=== PATIENT | male | born 1995 | race African-American/Black ===

== ENCOUNTER 2020-04-30 23:29 | Emergency (ER) | payer MEDICAID, OTHER ==
[~2020-04-30] VITALS: Ht 182.9 cm; Wt 69.9 kg
[2020-05-01 00:19] LABS: Basophils # (auto) 0.2 10 ^3/uL (0-0.2); Basophils % (auto) 2.7 % (0.0-2.0); Eosinophils # (auto) 0.1 10 ^3/uL (0-0.8); Eosinophils % (auto) 1.9 % (0.0-7.0); Hematocrit 39.1 % (41.0-53.0); Hemoglobin 13.3 g/dL (13.5-17.5); Lymphocytes # (auto) 1.2 10 ^3/uL (0.4-5.4); Lymphocytes % (auto) 19.8 % (10.0-50.0); Mean Corpuscular Hemoglobin 30.6 pg (28.0-32.0); Mean Corpuscular Volume 90.1 fL (80.0-100.0); Monocytes # (auto) 0.7 10 ^3/uL (0-1.3); Monocytes % (auto) 11.8 % (0.0-12.0); Neutrophils % (auto) 63.8 % (37.0-80.0); Platelet Count (auto) 203 10^3/uL (140-450); Red Blood Cells 4.34 10^6/uL (4.5-5.90); Red Cell Distribution Width 13.7 % (11.8-14.3); White Blood Cell 6.2 10^3/uL (4.4-10.8)
[2020-05-01 00:29] LABS: Albumin 4.3 g/dL (3.4-5.0); Anion Gap 9 (5-15); Blood Urea Nitrogen 11 mg/dL (7-18); Calcium 9.2 mg/dL (8.5-10.1); Carbon Dioxide 27 mmol/L (21-32); Chloride 105 mmol/L (98-107); Glucose 67 mg/dL (74-106); Potassium 3.7 mmol/L (3.5-5.1); Sodium 141 mmol/L (136-145)
[2020-05-01 00:30] LABS: Salicylate < 1.7 mg/dL (2.8-20.0)
[2020-05-01 00:32] LABS: Alanine Aminotransferase 17 U/L (16-61); Aspartate Aminotransferase 18 U/L (15-37); BUN/Creatinine Ratio 11.3; Blood Alcohol < 3.0 mg/dL (0-5); GFR African American 123 mL/min; GFR Non-African American 102 mL/min
[2020-05-01 00:35] LABS: Alkaline Phosphatase 52 U/L (45-117); Bilirubin, Total 1.3 mg/dL (0.2-1.0)
[2020-05-01 00:36] LABS: Acetaminophen < 2.0 ug/mL (10-30)
[2020-05-01 00:37] LABS: Urine Bacteria FEW /hpf (None Seen); Urine Blood 3+ /uL (Negative); Urine Specific Gravity 1.015 (1.001-1.035); Urine WBC 2 /hpf (0 - 3)
[2020-05-01 00:47] LABS: Alcohol, Urine < 3.0 mg/dL (0-10); Amphetamine Screen, Urine NEGATIVE (NEGATIVE); Barbiturate Scree,Urine NEGATIVE (NEGATIVE); Benzodiazephine Screen, Urine POSITIVE (NEGATIVE); Cannabinoid Screen, Urine POSITIVE (NEGATIVE); Cocaine Screen, Urine NEGATIVE (NEGATIVE); Opiate Scree,Urine NEGATIVE (NEGATIVE); Phencyclidine Screen, Urine NEGATIVE (NEGATIVE)
[2020-05-01 02:13] VITALS: BP 136/79
== END 2020-05-01 02:49 | disposition home or self-care (01) ==
LOC: ER 23:31
DX: T65.91XA Toxic effect of unspecified substance, accidental (unintentional), initial encounter (principal); Y92.89 Other specified places as the place of occurrence of the external cause; F19.10 Other psychoactive substance abuse, uncomplicated
CPT/HCPCS: 36415; 71045; 80053; 80307; 80320; 80329; 81001; 84484; 85025; 93005